=== PATIENT | female | born 1970 | race Caucasian/White ===

== ENCOUNTER → 2020-06-11 11:22 | Outpatient (CLI) | payer OTHER, SELFPAY ==
--- NOTE | ~2020-06-11 | DEXA_ITS ---
Bone Density Report Name: Delores Melo Age: 49 Sex: Female Ethnicity: White Date of : 1970 Indication: postmenopausal; screening for osteoporosis; inflammatory bowel disease; seizure disorder; hysterectomy; secondary osteoporosis; Referring Provider: DEYANIRA, JAYLIN Velazco Study: Bone densitometry was performed. Exam Date: June 11, 2020 Accession number: [id number] Bone Density: Region BMD T-score Z-score Classification AP Spine (L1-L4) 0.734 -2.8 -2.1 Osteoporosis Femoral Neck (Left) 0.579 -2.4 -1.7 Osteopenia Total Hip (Left) 0.639 -2.5 -2.0 Osteoporosis Femoral Neck (Right) 0.565 -2.6 -1.8 Osteoporosis Total Hip (Right) 0.664 -2.3 -1.8 Osteopenia Total Hip Mean 0.652 -2.4 -1.9 Osteopenia World Health Organization criteria for BMD impression classify patients as: Normal (T-score at or above -1.0), Osteopenia (T-score between -1.0 and -2.5), or Osteoporosis (T-score at or below -2.5). 10-year Fracture Risk: FRAX not reported because: Some T-score for Spine Total or Hip Total or Femoral Neck at or below -2.5 Clinical Information Provided by Patient: Has secondary osteoporosis Has the following medical conditions: Any Seizure Disorders, Inflammatory bowel diseases, Hysterectomy Patient maximum height was 62 Menopause Age: 47 Does not regularly consume dairy products Drinks caffeinated beverages Onset of menses at age 11 Number of children 0 Missed period for more than 6 months in a row Impression: The patient has osteoporosis, based on the Total Spine T-score. Discussion: HIGH RISK OF FRACTURE. BONE DENSITY IS UNDESIRABLY LOW AT ONE OR MORE SKELETAL SITES, CONSISTENT WITH OSTEOPOROSIS. ALSO, BONE DENSITY IS LOWER THAN EXPECTED FOR AGE AND SEX AT ONE OR MORE SKELETAL SITES; RECOMMEND A DILIGENT SEARCH FOR SECONDARY CAUSES OF BONE LOSS. This patient's lowest T-score meets the World Health Organization's (WHO) criteria for osteoporosis at one or more sites (T-score -2.5 or below). In untreated patients, the risk of osteoporotic fracture increases approximately two-fold for each 1.0 SD decrease in T-score. Low bone density is not the only risk factor for fracture; also consider factors such as patient's age, frailty or poor health, risk of falling, risk of injury, previous osteoporotic fracture, family history of osteoporosis, cigarette smoking, low body weight, etc. Not everyone with low bone mineral density has osteoporosis; osteomalacia and other metabolic bone disorders should also be considered. Patients who have osteoporosis should be evaluated for specific diseases and conditions (secondary causes) that may cause or contribute to bone loss. The [place] [employer] (AACE) and National Osteoporosis Foundation (NOF) recommend pharmacologic intervention for all postmenopausal women w
== END ==
PROVIDERS: PCP Family Medicine; Visit Provider Family Medicine
DX: M81.0 Age-related osteoporosis without current pathological fracture (principal); M85.852 Other specified disorders of bone density and structure, left thigh; M85.851 Other specified disorders of bone density and structure, right thigh
CPT/HCPCS: 77080

== ENCOUNTER 2020-10-08 02:35 | Outpatient (CLI) | payer OTHER, SELFPAY ==
[2020-10-08 19:47] LABS: SARS-CoV-2 RNA PCR Negative
== END 2020-10-08 02:36 | disposition home or self-care (01) ==
LOC: ANHCOVIDDT 02:35
PROVIDERS: PCP Family Medicine; Visit Provider Internal Medicine Gastroenterology
DX: Z01.812 Encounter for preprocedural laboratory examination (principal); Z20.828 Contact with and (suspected) exposure to other viral communicable diseases
CPT/HCPCS: 87635; C9803; U0003

== ENCOUNTER 2020-10-11 04:38 | Day surgery (SDC) | payer OTHER, SELFPAY ==
[2020-10-07 12:17] VITALS: BMI 20.1
[2020-10-11 06:41] VITALS: BP 108/75; PULSE 67; RESP 16; TEMP 36.4; O2SAT 97
[2020-10-11] MEDS: LACTATED RINGERS 1,000 ML 150 ML IV CONT (06:57)
--- NOTE | 2020-10-11 07:33 | WPDANESEPPF ---
Anes - Initial Pre Proc Eval Procedure: Operation Date: 10/11/20 08:00 Proposed Procedures p Screening Colonoscopy - Rai Taveras MD Date/Time: 10/11/20 07:33 Surgeon: Rai Taveras MD Pre Op Diagnosis: Neoplasm Screening Patient Data Age: 49 Gender: F Height: 5 ft 2 in Weight: 48.1 kg Last Vital Signs Temp 36.4 C L 10/11/20 06:41 Pulse 67 10/11/20 06:41 Resp 16 10/11/20 06:41 BP 108/75 10/11/20 06:41 Pulse Ox 97 10/11/20 06:41 Allergies Allergy/AdvReac Type Severity Reaction Status Date / Time No Known Allergies Allergy Unknown Verified 10/11/20 06:40 Home Medications Medication Instructions Recorded Confirmed Type alendronate 70 mg PO WEEKLY 10/07/20 10/11/20 History dexlansoprazole [Dexilant] 60 mg PO DAILY 10/07/20 10/11/20 History fluticasone propionate 1 spray INTRANASAL DAILY 10/07/20 10/11/20 History lamotrigine 100 mg PO BID 10/07/20 10/07/20 History Patient hx anesthesia problems: post op nausea/vomiting Family hx anesthesia problems: none PMFSH Past Medical History Medical History Seizure disorder Social History Social History Living arrangements: alone Spiritual care concerns: No Anes - Eval Final PreProcedure Day of Procedure 10/11/20 07:33 Patient weight: normal Heart: regular rate and rhythm Lungs: clear to auscultation Airway: Mallampati scale class 1 Neurological: alert and oriented Last oral intake: >/= 8 hours ASA classification: II Emergent: no Anesthetic plan: proceed Anesthesia type and monitoring: general GIVS and standard monitoring Informed Consent: The patient's anesthetic plan and its attendant risks and benefits were discussed with the patient/family/POA. Questions were solicited and answers provided to the satisfaction of the patient/family/POA.
--- NOTE | 2020-10-11 08:35 | WPDGICN ---
Assessment and Plan Assessment and plan (1) Encounter for screening colonoscopy: Code(s): Z12.11 - Encounter for screening for malignant neoplasm of colon Status: Acute Assessment and Plan: Patient presents for screening colonoscopy because of her age. She appears to be at average risk for colon polyps. Further recommendations will be given after colonoscopy. GI Consult Note Consult date/time: 10/11/20 08:35 HPI: Delores Melo is a 49 year old female Seen in evaluation at the request of Dr. Kathryn Marquez, and Dr Samantha Oakley. patient presents for neoplasia screening colonoscopy. Patient's current weight appetite bowel movements are normal. She denies abdominal pain. Her family history is noncontributory. She has had no bleeding. Review of Systems Review of Systems: All systems reviewed & are unremarkable except as noted in HPI and below PMFSH Past Medical History Medical History Seizure disorder Social History Social History Living arrangements: alone Spiritual care concerns: No Meds Home Medications and Allergies Home Medications Medication Instructions Recorded Confirmed Type alendronate 70 mg PO WEEKLY 10/07/20 10/11/20 History dexlansoprazole [Dexilant] 60 mg PO DAILY 10/07/20 10/11/20 History fluticasone propionate 1 spray INTRANASAL DAILY 10/07/20 10/11/20 History lamotrigine 100 mg PO BID 10/07/20 10/07/20 History Allergies Allergy/AdvReac Type Severity Reaction Status Date / Time No Known Allergies Allergy Unknown Verified 10/11/20 06:40 Vital Signs Vital Signs - 24 hr 10/11/20 06:41 Temperature 97.5 F L Pulse Rate 67 Respiratory Rate 16 Blood Pressure 108/75 Pulse Oximetry 97 Exam Narrative: Exam Narrative: Physical exam reveals patient to be alert. Vital signs stable. HEENT exam unremarkable. Lungs are clear to auscultation and percussion. Heart is without murmur or extra sounds. Abdominal exam bowel sounds are present soft nontender with no organomegaly. Digital external rectal exam normal.
[2020-10-11 08:39] VITALS: BP 93/60; PULSE 65; RESP 12; O2SAT 100
[2020-10-11 08:49] VITALS: BP 105/69; PULSE 57; RESP 15; O2SAT 100
[2020-10-11 08:59] VITALS: BP 117/62; PULSE 46; RESP 15; O2SAT 100
== END 2020-10-11 09:18 | disposition home or self-care (01) ==
PROVIDERS: PCP Family Medicine; Visit Provider Internal Medicine Gastroenterology
PROC: 0DJD8ZZ Inspection of Lower Intestinal Tract, Via Natural or Artificial Opening Endoscopic (ICD-10-PCS; CPT 45378; principal; 2020-10-11 08:00)
DX: Z12.11 Encounter for screening for malignant neoplasm of colon (principal); K64.8 Other hemorrhoids; G40.909 Epilepsy, unspecified, not intractable, without status epilepticus
CPT/HCPCS: 45378; J2704; J7120

== ENCOUNTER → 2020-12-11 16:58 | Outpatient (CLI) | payer OTHER, SELFPAY ==
--- NOTE | ~2020-12-11 | MR_ITS ---
EXAMINATION: MR knee RT wo con DATE: 12/11/2020 17:57 INDICATION: Right knee instability. TECHNIQUE: Magnetic resonance imaging (MRI) of the right knee was performed without intravenous contr ast. Sequences included axial PD-weighted FS FSE, coronal PD-weighted FSE and PD-weighted FS FSE, sag ittal PD-weighted FSE, and sagittal T2-weighted FS FSE. COMPARISON: None. FINDINGS: Medial compartment: Medial meniscus is intact. There is cartilage surface irregularity of femoral condyle involving the l ateral articular surface. There is cartilage surface regularity of tibial condyle involving the later al articular surface. Lateral compartment: Lateral meniscus is normal. Femoral cartilage is normal. There is cartilage surface irregularity of t ibial condyle posteriorly. Patellofemoral compartment: Patellar cartilage is normal. Trochlear cartilage is normal. Ligaments and tendons: There is a complete tear of anterior cruciate ligament. Posterior cruciate ligament is intact. There are sprains of medial collateral ligament and fibular collateral ligament characterized by thickening and increased signal intensity proximally and adjacent edema. There is mild patellar tendinopathy. T here is edema of soleus and popliteus muscles, consistent with mild strains. Fluid: There is a large hemarthrosis. There is widespread edema of the fat about the knee. Osseous/other: There is bone marrow edema of medial tibial condyle posteriorly, consistent with contusion. There is an impaction fracture of lateral tibial condyle posteriorly with 3 mm cortical depression, low signal fracture lines, and bone marrow edema. IMPRESSION: 1. Complete tear of anterior cruciate ligament. 2. Impaction fracture of lateral tibial condyle posteriorly. Contusion of medial tibial condyle poste riorly. 3. Mild chondrosis of medial and lateral compartments. 4. Large hemarthrosis. 5. Sprains of medial collateral ligament and fibular collateral ligament (grade 2). 6. Mild strains of soleus and popliteus muscles (grade 1). Reviewed, dictated and finalized at location B. ER SODA IMPRESSION: 1. Complete tear of anterior cruciate ligament. 2. Impaction fracture of lateral tibial condyle posteriorly. Contusion of media l tibial condyle posteriorly. 3. Mild chondrosis of medial and lateral compartments. 4. Large hemarthrosis. 5. Sprains of medial collateral ligament and fibular collateral ligament (grade 2). 6. Mild strains of soleus and popliteus muscles (grade 1).
== END ==
PROVIDERS: PCP Family Medicine
DX: S83.411A Sprain of medial collateral ligament of right knee, initial encounter (principal); S83.421A Sprain of lateral collateral ligament of right knee, initial encounter; S83.511A Sprain of anterior cruciate ligament of right knee, initial encounter; X58.XXXA Exposure to other specified factors, initial encounter
CPT/HCPCS: 73721

== ENCOUNTER → 2021-11-14 09:10 | Outpatient (CLI) | payer OTHER, SELFPAY ==
--- NOTE | ~2021-11-14 | MR_ITS ---
EXAMINATION: MR knee RT wo con DATE: 11/14/2021 10:20 INDICATION: Internal derangement of the right knee TECHNIQUE: Magnetic resonance imaging (MRI) of the right knee was performed without intravenous contr ast. Sequences included coronal PD-weighted FSE, coronal PD-weighted FS FSE, sagittal T2-weighted FS E, sagittal PD-weighted FS FSE and axial PD weighted fat saturated FSE. COMPARISON: 12/11/2020. FINDINGS: Medial compartment: Medial meniscus is normal. Focal chondral swelling and mild fissuring along the lateral margin of the anterior weightbearing medial femoral condyle. There is chondral surface regularity and mild subarti cular edema along the juxtaposed lateral side of the medial tibial plateau along the articular surfac e of the intercondylar eminence. No interval progression since the prior study. Lateral compartment: Lateral meniscus is normal. Small region of partial-thickness chondral fissuring with mild subarticul ar edema along the posterior margin of the lateral tibial plateau with there is subtle old healed imp action fractures with minimal residual depression of the cortex along the rim of the lateral tibial p lateau. This fracture appeared acute at the time of the prior MRI. Patellofemoral compartment: Small region of new deep chondral fissuring along the inferior aspect of the medial patellar facet wi thout degenerative subchondral changes. Trochlear cartilage is normal. Ligaments and tendons: Interval anterior cruciate ligament reconstruction with intact appearing graft. The posterior cruciat e ligament is normal. Mild thickening without increased signal at the proximal medial collateral liga ment consistent with mild residual scarring related to the previously noted sprain. The previously se en sprain of the proximal fibular collateral ligament has healed and now appears normal. The extensor mechanism is normal. The semitendinosus tendon is no longer visualized suggesting this was utilized autograft for the anterior cruciate ligament reconstruction. The visualized medial and lateral hamstr ing tendons as well as the iliotibial band are otherwise normal. Fluid: Physiologic amount of fluid in the joint space. No loose osteochondral bodies identified. Osseous/other: Bone alignment is normal. No acute fracture or blastic marrow replacing process. IMPRESSION: 1. New likely chondral injury with deep fissuring along the inferior aspect of the medial patellar fa cet. 2. Intact appearing anterior cruciate ligament reconstruction likely with semitendinosus autograft elias rvest. 3. Unchanged small regions of moderate grade chondromalacia in the medial and lateral compartments as detailed above. Reviewed, dictated and finalized at location H. ING ASSISTANT IMPRESSION: 1. New likely chondral injury with deep fissuring along the inferior aspect of the medial patellar facet. 2. Intact appearing anterior cruciate ligament reconstruction likely with semit endinosus autograft harvest. 3. Unchanged small regions of moderate grade chondromalacia in the medial and l ateral compartments as detailed above.
== END ==
DX: S83.511D Sprain of anterior cruciate ligament of right knee, subsequent encounter (principal); X58.XXXD Exposure to other specified factors, subsequent encounter
CPT/HCPCS: 73721

== ENCOUNTER → 2022-09-30 13:20 | Outpatient (CLI) | payer OTHER, SELFPAY ==
--- NOTE | ~2022-09-30 | DEXA_ITS ---
Bone Density Report Name: HARMONY MORRIS Age: 51 Sex: Female Ethnicity: White Date of : 1970 Indication: postmenopausal osteoporosis; monitoring treatment; inflammatory bowel disease; seizure disorder; hysterectomy; Referring Provider: DEYANIRA, JAYLIN Velazco Study: Bone densitometry was performed. Exam Date: September 30, 2022 Accession number: [id number] Bone Density: Region BMD T-score Z-score Classification AP Spine (L1-L4) 0.762 -2.6 -1.7 Osteoporosis Femoral Neck (Left) 0.598 -2.3 -1.3 Osteopenia Total Hip (Left) 0.684 -2.1 -1.5 Osteopenia Femoral Neck (Right) 0.557 -2.6 -1.7 Osteoporosis Total Hip (Right) 0.648 -2.4 -1.8 Osteopenia Total Hip Mean 0.666 -2.3 -1.7 Osteopenia World Health Organization criteria for BMD impression classify patients as: Normal (T-score at or above -1.0), Osteopenia (T-score between -1.0 and -2.5), or Osteoporosis (T-score at or below -2.5). 10-year Fracture Risk: FRAX not reported because: Some T-score for Spine Total or Hip Total or Femoral Neck at or below -2.5 Treated for osteoporosis Previous Exams: Region Exam Age BMD T-score BMD Change BMD Change Date g/cm2 vs Baseline vs Previous AP Spine(L1-L4) 09/30/2022 51 0.762 -2.6 0.028* 0.028* 06/11/2020 49 0.734 -2.8 Total Hip(Left) 09/30/2022 51 0.684 -2.1 0.045* 0.045* 06/11/2020 49 0.639 -2.5 Total Hip(Right) 09/30/2022 51 0.648 -2.4 -0.017 -0.017 06/11/2020 49 0.664 -2.3 *Denotes significance at 95% confidence level, LSC for AP Spine = 0.022 g/cm2, LSC for Total Hip = 0.027 g/cm2 Clinical Information Provided by Patient: Is being treated for osteoporosis Has used the following medications: Fosamax (i.e. alendronate), Vitamin D Has the following medical conditions: Any Seizure Disorders, Inflammatory bowel diseases, Hysterectomy Patient maximum height was 62.4 Menopause Age: 47 Drinks caffeinated beverages Onset of menses at age 11 Number of children 0 Missed period for more than 6 months in a row Impression: The patient has osteoporosis, based on the Total Spine T-score. No significant bone loss was observed. Discussion: PATIENT UNDER TREATMENT WITH NO SIGNIFICANT BMD LOSS SINCE LAST EXAM. In an untreated patient, BMD typically declines with age. A lack of decline or gain is usually a sign that treatment is efficacious and fracture risk is reduced. It is important to ask patients whether th
== END ==
PROVIDERS: PCP Family Medicine; Visit Provider Family Medicine
DX: M81.0 Age-related osteoporosis without current pathological fracture (principal); M85.852 Other specified disorders of bone density and structure, left thigh; M85.851 Other specified disorders of bone density and structure, right thigh
CPT/HCPCS: 77080

== ENCOUNTER 2022-10-04 10:46 | Observation (INO) | payer OTHER, SELFPAY ==
--- NOTE | ~2022-10-04 | US_ITS ---
EXAMINATION: US pelvic complete DATE: 10/05/2022 09:15 INDICATION: Left adnexal lesion. TECHNIQUE: Multiple transabdominal and transvaginal sonographic images of the pelvis were obtained. COMPARISON: CT abdomen and pelvis 10/04/2022 FINDINGS: TRANSABDOMINAL ULTRASOUND: The uterus measures 6.2 x 3.6 x 3.8 cm. There is no free fluid in the pelvis. TRANSVAGINAL ULTRASOUND: The endometrial complex measures 3 mm in thickness. There is a 1.8 cm intramural fibroid. The right o vary is not visualized. In the left adnexa, there is a 7.5 x 4.7 x 3.5 cm cystic mass with internal l ow-level echoes and borderline thickened septations with vascular flow in the septations. IMPRESSION: 1. 7.5 cm cystic mass in the left adnexa with borderline thickened septations with vascular flow. Thi s finding is suspicious for neoplasm. Surgical evaluation is recommended. Reviewed, dictated and finalized at location A. UM GUIDE IMPRESSION: 1. 7.5 cm cystic mass in the left adnexa with borderline thickened septations w ith vascular flow. This finding is suspicious for neoplasm. Surgical evaluation is recommended.
--- NOTE | ~2022-10-04 | MR_ITS ---
EXAMINATION: MR MRCP wo/w con/w 3D wo ind DATE: 10/05/2022 08:04 INDICATION: Abdominal pain. Abnormal liver function tests. TECHNIQUE: Magnetic resonance imaging (MRI) of the abdomen was performed without and with 10 mL Multi Griselda intravenous contrast. Sequences included coronal T2-weighted FS FSE, coronal T2-weighted FSE, a xial T1-weighted LAVA, coronal FS FIESTA, axial dual-echo T1-weighted SPGR, coronal lava-FLEX, sagitt al T2-weighted FSE, axial T2-weighted FSE, and axial DWI. Thick-slab T2-weighted FSE images were obta ined for magnetic resonance cholangiopancreatography (MRCP). Maximum intensity projection 3-D reconst ructions of the volumetric data were created by the technologist. Postcontrast sequences included cor onal LAVA-flex and time course of axial T1-weighted LAVA. COMPARISON: CT abdomen and pelvis 10/04/2022 FINDINGS: ABDOMEN MRI: The liver is normal. There are changes of cholecystectomy. There are small peripheral in farcts in the spleen. The pancreas, adrenal glands, and kidneys are normal. There are no dilated loop s of bowel. There are no pathologically enlarged lymph nodes. There is no free intraperitoneal fluid. ABDOMEN MRCP: Pneumobilia is noted. The common duct is normal in caliber. IMPRESSION: 1. Pneumobilia, new from 10/04/2022, which may be from recent stone passage. Resolved common duct dil atation. 2. 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 Reviewed, dictated and finalized at location A. RAL CLEANER IMPRESSION: 1. Pneumobilia, new from 10/04/2022, which may be from recent stone passage. Re solved common duct dilatation. 2. 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
--- NOTE | ~2022-10-04 | CT_ITS ---
EXAMINATION: CT abdomen pelvis w con INDICATION: Epigastric pain TECHNIQUE: Computed tomographic images of the abdomen and pelvis were obtained after the administrati on of 100 cc of Omnipaque 350 intravenous contrast. The dose-length product (DLP) was 171.16 mGy-cm. Automated exposure control and iterative reconstruction technique were employed. COMPARISON: None available FINDINGS: There is a 4 mm nodule of the left lower lobe. The heart size is normal. There are changes of cholecystectomy. There is a questionable filling defect of the distal common bile duct at the ampu lla. There is intrahepatic and extrahepatic biliary dilatation. The common bile duct measures up to 1 .3 cm. Cysts of the spleen measure up to 4 mm. The liver, pancreas, and adrenal glands are normal. Th e kidneys are unremarkable. No pathologically enlarged abdominal or pelvic lymph nodes are identified . There is no free intraperitoneal gas or evidence of bowel obstruction. There is a 7.7 x 6.1 cm comp dominique cystic lesion of the left adnexa with internal septations. There is mild lumbar spondylosis. IMPRESSION: 1. Intrahepatic and extrahepatic biliary dilatation with possible filling defect of the distal common bile duct at the ampulla. Given elevated liver function tests, GI consultation and further evaluatio n with endoscopy are recommended. 2. Complex cystic lesion of the left adnexa. Follow-up pelvic ultrasound is recommended. 3. 4 mm nodule of the left lower lobe. Reviewed, dictated and finalized at location A. RUCTIONAL DESIGN CONSULTANT IMPRESSION: 1. Intrahepatic and extrahepatic biliary dilatation with possible filling defec t of the distal common bile duct at the ampulla. Given elevated liver function tests, GI consultation and further evaluation with endoscopy are recommended. 2. Complex cystic lesion of the left adnexa. Follow-up pelvic ultrasound is rec ommended. 3. 4 mm nodule of the left lower lobe.
[2022-10-04 11:30] VITALS: BP 147/91; PULSE 67; RESP 16; TEMP 36.7; O2SAT 98
[2022-10-04 11:46] LABS: Basophils Percent Auto 0.6 % (0.2-1.2); Eosinophils Absolute Auto 0.1 K/mm3 (0-0.3); Hematocrit 37.1 % (37.0-47.0); Hemoglobin 12.8 g/dL (12.0-15.0); Immature Granulocyte Absolute 0.02 K/mm3 (0.00-0.031); Immature Granulocyte Percent A 0.4 % (0-0.5); Lymphocytes Absolute Auto 0.57 K/mm3 (0.9-3.2); Lymphocytes Percent Auto 11.6 % (18.3-44.2); Mean Corpuscular HGB Conc 34.5 g/dl (32-36); Mean Corpuscular Hemoglobin 32.3 pg (26-34); Mean Corpuscular Volume 93.7 fl (80-100); Mean Platelet Volume 8.6 fl (7.4-10.4); Monocytes Absolute Auto 0.2 K/mm3 (0.1-0.6); Monocytes Percent Auto 4.9 % (2.6-8.5); Neutrophils Absolute Auto 3.9 K/mm3 (1.3-6.7); Neutrophils Percent Auto 80.5 % (45.5-73.1); Platelet Count Result 230 k/mm3 (150-375); Red Blood Count 3.96 M/mm3 (4.2-5.4); Red Cell Distribution Width 12.2 % (11.5-14.5); White Blood Count 4.9 K/mm3 (4.5-10.0)
[2022-10-04 11:59] LABS: Albumin Level 4.3 g/dL (3.5-5.1); Alkaline Phosphatase 189 U/L (38-126); Anion Gap 9 mmol/L (8-16); Bilirubin,Total 1.2 mg/dL (0.2-1.3); Blood Urea Nitrogen 12 mg/dL (7-17); Calcium 8.9 mg/dL (8.4-10.2); Carbon Dioxide 25 mmol/L (22-30); Chloride 102 mmol/L (98-107); Estimated CRCL calculation 54 ml/min; Estimated Glomerular Filt Rate > 60; Glucose 129 mg/dL (65-110); Lipase 212 U/L (23-300); Potassium 3.3 mmol/L (3.4-5.0); Sodium 136 mmol/L (137-145)
[2022-10-04 12:06] LABS: Alanine Aminotransferase 883 U/L (6-35); Aspartate Amino Transferase 811 U/L (14-36)
[2022-10-04 12:24] LABS: Appearance Urine Clear (Clear); Bilirubin Urine Negative (Negative); Blood Urine Trace-lysed (Negative); Color Urine Yellow (Yellow); Glucose Urine UA Negative (Negative); Ketones Urine Negative (Negative); Leukocyte Esterase Ur Negative LEU/UL (Negative); Nitrate Urine Negative (Negative); Protein Urine Negative (Negative); Specific Grav Ur <= 1.005 (1.001-1.035); Urobilinogen Urine 0.2 mg/dL (<2.0)
[2022-10-04 12:32] LABS: Add Urine Microscopic? YES
--- NOTE | 2022-10-04 12:44 | PC.NURSE ---
levi arias, sports activities foul judge ct abd pelvis w/con
[2022-10-04] MEDS: SODIUM CHLORIDE 0.9% IV 1,000 ML 999 ML IV CONT (13:50)
[2022-10-04] MEDS: BELLADONNA ALK/PHENOB ELIX 10 ML, MAG HYDROX/ALUMINUM HYD/SIMETH 30 ML, LIDOCAINE HCL 2... PO (13:50)
[2022-10-04] MEDS: PANTOPRAZOLE SODIUM IV 40 MG VIAL IV PUSH ×2 (13:50→22:06)
--- NOTE | 2022-10-04 13:57 | ED.ABDPAIN ---
HPI - Abdominal Pain General Chief Complaint: Abdominal Pain Stated Complaint: epigastric, upper abd pain, fevers Time Seen by Provider: 10/04/22 12:31 History of Present Illness HPI narrative: 51-year-old female history of GERD presents to the emergency room for evaluation of epigastric pain that began on Wednesday night. Patient states that she normally takes Dexilant for this but has not been helping. Patient reports taking multiple [id number] medications in an attempt to relieve her symptoms, none of them have been successful. Patient denies nausea or vomiting, diarrhea or constipation. Patient states pain is now radiating around both sides of her torso into her back. It is worse when laying flat. Describes pain as a throbbing sensation. Related Data Home Medications Medication Instructions Recorded Confirmed alendronate 70 mg tablet 70 mg PO WEEKLY 10/07/20 10/11/20 dexlansoprazole 60 mg 60 mg PO DAILY 10/07/20 10/11/20 capsule,biphase delayed release (Dexilant) fluticasone propionate 50 1 spray intranasal DAILY 10/07/20 10/11/20 mcg/actuation nasal spray,suspension lamotrigine 100 mg tablet 100 mg PO BID 10/07/20 10/07/20 Allergies Allergy/AdvReac Type Severity Reaction Status Date / Time No Known Allergies Allergy Unknown Verified 10/11/20 06:40 Review of Systems Review of Systems: CONSTITUTIONAL: Denies fever, chills, or sweats. EYES: Denies visual changes, redness, or discharge. ENT: Denies rhinorrhea, congestion, sore throat, or otalgia. CARDIOVASCULAR: Denies chest pain, palpitations, or edema. RESPIRATORY: Denies cough or dyspnea. GASTROINTESTINAL: Reports epigastric pain GENITOURINARY: Denies dysuria or hematuria. SKIN: Denies rash or itching. MUSCULOSKELETAL: Denies back pain, joint pain, or myalgia. NEUROLOGIC: Denies headache, numbness, dizziness, or weakness. PSYCHIATRIC: Denies anxiety or depression. PMFSH Past Medical History Medical History Seizure disorder Social History Social History Spiritual care concerns: No Exam Narrative: GENERAL: Well-appearing, well-nourished, no physical limitations, and in no acute distress. HEAD: Normocephalic, atraumatic. EYES: Conjunctivae normal, PERRLA and EOMI. CHEST: Clear to auscultation. No respiratory distress. No wheezes rales or rhonchi. HEART: Regular rate and rhythm. No murmur heard. Normal peripheral pulses. ABDOMEN: Soft, epigastric tenderness, nondistended, normal active bowel sounds. BACK: No CVA tenderness EXTREMITIES: Normal range of motion. No edema. No clubbing or cyanosis SKIN: Warm, dry, no rash. No noted wounds NEURO: No focal deficits. Alert and oriented x3. MAEW. CN's II-XI intact bilaterally, normal gait PSYCH: Cooperative. Normal mood and affect. Course Vital Signs Vital signs: Vital Signs Temperature 36.7 C 10/04/22 11:30 Pulse Rate 67 10/04/22 11:30 Respiratory Rate 16 10/04/22 11:30 Blood Pressure 147/91 H 10/04/22 11:30 Pulse Oximetry 98 10/04/22 11:30 Oxygen Delivery Room Air 10/04/22 11:30 Temperature 36.7 C 10/04/22 11:30 Pulse Rate 67 10/04/22 11:30 Respiratory Rate 16 10/04/22 11:30 Blood Pressure 147/91 H 10/04/22 11:30 Pulse Oximetry 98 10/04/22 11:30 Oxygen Delivery Room Air 10/04/22 11:30 MDM - Abdominal Pain Lab Data Result diagrams: 10/04/22 11:40 10/04/22 11:40 Labs: Lab Results 10/04/22 10/04/22 10/04/22 Range/Units 11:40 11:40 12:15 WBC 4.9 (4.5-10.0) K/mm3 RBC 3.96 L (4.2-5.4) M/mm3 Hgb 12.8 (12.0-15.0) g/dL Hct 37.1 (37.0-47.0) % MCV 93.7 (80-100) fl MCH 32.3 (26-34) pg MCHC 34.5 (32-36) g/dl RDW 12.2 (11.5-14.5) % Plt Count 230 (150-375) k/mm3 MPV 8.6 (7.4-10.4) fl Immature Gran % (Auto) 0.4 (0-0.5) % Neut % (Auto) 80.5 H
--- NOTE | 2022-10-04 15:30 | PM.IMHP ---
H&P: HPI History of Present Illness Date/Time: 10/04/22 15:30 Chief Complaint: Abdominal pain. Narrative: This is a very pleasant 51-year-old female with history of seizures, GERD, breast cancer, and gallstones status post cholecystectomy over 10 years ago who presented to the emergency department from home for evaluation of epigastric pain. evening she had issues with heartburn which is not necessarily unusual for. She took her usual cocktail of Tums and Gaviscon which seemed to help although she continues to have similar symptoms intermittently. Wednesday evening she had chicken soup for dinner and her symptoms were much worse after eating and she has not been eating much since that time. On Wednesday she developed chills and a low-grade temperature to 100.8? Fahrenheit. She has had worsening pain since that time and she describes a burning discomfort in epigastrium with in addition to an aching discomfort also in the right upper quadrant. The pain does not radiate and she denies nausea, vomiting, and diarrhea. No sick contacts. She was afebrile on arrival to the emergency department her vital signs have been stable. Labs done in the emergency department were significant for a sodium of 136, potassium 3.3, AST 11, ALT 83, alkaline phosphatase 189, total bilirubin 1.2, lipase 212. CT of the abdomen and pelvis showed intrahepatic and extrahepatic biliary dilatation with possible filling defect of the distal common bile duct at the ampulla and she is being admitted in this setting. She was given a GI cocktail with perhaps a little bit of benefit though hydromorphone 0.5 milligram seemed to help the most. Review of Systems Review of Systems: Twelve systems were reviewed. No cold or flu symptoms. No sick contacts. No exposure to or concerns for hepatitis. No diarrhea. No jaundice or pruritus. Except as documented, all other systems were reviewed and are negative. [facility] Past Medical History Medical History (Updated 10/04/22 @ 20:50 by Michelle Nguyen PA-C) Cancer of right breast (2014) Status post lumpectomy and chemo radiation. Gastroesophageal reflux disease Melanoma of back Seizure disorder Surgical History Surgical History (Updated 10/04/22 @ 20:44 by Michelle Nguyen PA-C) History of bilateral salpingo-oophorectomy History of cholecystectomy History of lumpectomy of right breast (2014) History of melanoma excision History of ovarian cystectomy History of repair of anterior cruciate ligament of right knee History of repair of left rotator cuff Family History Family History (Updated 10/04/22 @ 20:45 by Michelle Nguyen PA-C) Other Hypertension Social History Social History (Updated 10/04/22 @ 20:45 by Michelle Nguyen PA-C) Social History: Surrogate medical decision maker: Dewayne Phipps, significant other. Code status: Full code. Smoking status: Never smoker Alcohol intake: never Substance use: never Lack of Transportation: No Lack of Food: Never True Current Housing: I Have Housing Concerned About Future Housing: No Difficulty Paying Gas/Electric Bills: No Difficulty Paying for Meds: No Currently Unemployed: No Education: Master's Degree or Higher Difficulty w/ Childcare or Family Care: No Spiritual care concerns: No Meds Home Medications and Allergies Home Medications Medication Instructions Recorded Confirmed Type alendronate 70 mg tablet 70 mg PO WEEKLY 10/07/20 10/04/22 History dexlansoprazole 60 mg 60 mg PO DAILY 10/07/20 10/04/22 History capsule,biphase delayed release (Dexilant) lamotrigine 100 mg tablet 100 mg PO BID 10/07/20 10/04/22 History oxybutynin chloride 5 mg tablet 2.5 mg PO BID 10/04/22 10/04/22 History Allergies Allergy/AdvReac Type Severity Reaction Status Date / Time No Known Allergies Allergy Unknown Verified 10/11/20 06:40 Vital Signs Vital Signs - 24 hr 10/04/22 11:30 10/04/22 15:45 10/04/22 16:00 Temperat
[2022-10-04 15:44] LABS: Influenza A QL RT-PCR Negative (Negative); Influenza B QL RT-PCR Negative (Negative); RSV RNA, RT-PCR Negative (Negative); SARS-CoV-2 RNA PCR Negative
[2022-10-04 15:45] VITALS: BP 142/86; PULSE 74; RESP 16; TEMP 36.9; O2SAT 98
[2022-10-04 16:00] VITALS: BP 143/82; PULSE 100; RESP 16; TEMP 37; O2SAT 98
--- NOTE | 2022-10-04 16:33 | PC.NURSE ---
This patient, Delores Meol, was admitted to [facility] Surg Room 312-01. Patient/family oriented to hospital policies and general routines including ID bracelet, bed and alarms, visiting hours, pain management, procedures, bathroom and other care routines, personal items, smoking policy, room service/diet, and visiting hours. Information on how to activate the Rapid Response Team has been discussed. Patient/Family are encouraged to report perceived risks to care and to ask questions if they do not understand what they are told or what they should do.
[2022-10-04 16:35] VITALS: BMI 20.2
[2022-10-04] MEDS: SODIUM CHLORIDE 0.9% IV 1,000 ML 125 ML IV CONT (16:51)
[2022-10-04] MEDS: HYDROmorphone HCL INJ (*CRX) 1 MG/ML SYR 0.5 MG IV PUSH (16:57)
[2022-10-04 20:00] VITALS: BP 143/82; PULSE 89; RESP 16; TEMP 37.2; O2SAT 99
[2022-10-04] MEDS: POTASSIUM CHLORIDE 20 MEQ TABLET PO (22:06)
[2022-10-04 23:03] VITALS: TEMP 37.2
[2022-10-04] MEDS: lamoTRIgine 100 MG TABLET PO (23:03)
[2022-10-05] VITALS (8 sets, daily range): BP systolic 105–149; BP diastolic 62–90; PULSE 50–70; RESP 12–17; TEMP 36.2–38.6; O2SAT 98–99
[2022-10-05] MEDS: SODIUM CHLORIDE 0.9% IV 1,000 ML 125 ML IV CONT ×3 (01:40→14:54)
[2022-10-05] MEDS: IBUPROFEN IV 600 MG in SODIUM CHLORIDE 0.9% IV 100 ML 200 MG IVPB (03:53)
[2022-10-05 07:18] LABS: Hematocrit 34.4 % (37.0-47.0); Hemoglobin 11.7 g/dL (12.0-15.0); Mean Corpuscular Hemoglobin 32.5 pg (26-34); Mean Corpuscular Volume 95.6 fl (80-100); Mean Platelet Volume 9.1 fl (7.4-10.4); Platelet Count Result 175 k/mm3 (150-375); Red Cell Distribution Width 12.5 % (11.5-14.5)
[2022-10-05 07:34] LABS: Alanine Aminotransferase 664 U/L (6-35); Albumin Level 3.4 g/dL (3.5-5.1); Alkaline Phosphatase 239 U/L (38-126); Anion Gap 12 mmol/L (8-16); Aspartate Amino Transferase 522 U/L (14-36); Bilirubin,Total 2.2 mg/dL (0.2-1.3); Blood Urea Nitrogen 8 mg/dL (7-17); Calcium 7.1 mg/dL (8.4-10.2); Carbon Dioxide 22 mmol/L (22-30); Chloride 103 mmol/L (98-107); Estimated CRCL calculation 64 ml/min; Estimated Glomerular Filt Rate > 60; Glucose 81 mg/dL (65-110); Lipase 83 U/L (23-300); Magnesium 2.1 mg/dL (1.6-2.3); Potassium 3.5 mmol/L (3.4-5.0); Sodium 137 mmol/L (137-145)
[2022-10-05 08:49] LABS: INR 1.4; Prothrombin Time 16.4 Seconds (11.1-14.7)
[2022-10-05 08:50] LABS: Partial Thromboplastin Time 40.3 SECONDS (22.3-36.8)
[2022-10-05] MEDS: PANTOPRAZOLE SODIUM IV 40 MG VIAL IV PUSH ×2 (09:09→21:52)
[2022-10-05] MEDS: lamoTRIgine 100 MG TABLET PO ×2 (09:10→16:33)
[2022-10-05 09:34] LABS: Hepatitis B Surface Antigen Negative (Negative)
[2022-10-05 09:39] LABS: HAV RESULT Negative (Negative); Hepatitis B Core IgM Result Negative (Negative)
[2022-10-05 09:51] LABS: Hepatitis C Virus Antibody Negative (Negative)
--- NOTE | 2022-10-05 16:48 | WPDGICN ---
Assessment and Plan Assessment and plan (1) Dilation of biliary tract: Code(s): K83.8 - Other specified diseases of biliary tract Status: Acute Assessment and Plan: MRCP reviewed and bile duct is clear with normalization of size (originally dilated in CT scan), most likely passed stone also had elevated liver enzymes and fever will cover with abx advance diet (2) Elevated liver enzymes: Code(s): R74.8 - Abnormal levels of other serum enzymes Status: Acute Assessment and Plan: repeat liver enzymes in am probably already passed stone (3) Abdominal pain: Code(s): R10.9 - Unspecified abdominal pain Status: Acute Assessment and Plan: better will advance diet (4) SIRS (systemic inflammatory response syndrome): Code(s): R65.10 - Systemic inflammatory response syndrome (SIRS) of non-infectious origin without acute organ dysfunction Status: Acute Assessment and Plan: with fever on admission monitor (5) Fever: Code(s): R50.9 - Fever, unspecified Status: Acute (6) History of cholecystectomy: Code(s): Z90.49 - Acquired absence of other specified parts of digestive tract Status: Acute (7) Pneumobilia: Code(s): K83.8 - Other specified diseases of biliary tract Status: Acute GI Consult Note Consult date/time: 10/05/22 16:48 Reason for consult: elevated liver enzymes, dilated bile duct HPI: Deloreskriss Melo is a 51 year old female with history of seizures, GERD, breast cancer, and gallstones status post cholecystectomy over 10 years ago (required lap alfredito and ercp) here with new onset of severe epigastric pain along with low grade fever. She took her usual cocktail of Tums and Gaviscon but did not help. Pain worse after had chicken soup for dinner, also nausea and low-grade temperature to 100.8? Fahrenheit. No sick contacts. Labs showed sodium of 136, potassium 3.3, AST 11, ALT 83, alkaline phosphatase 189, total bilirubin 1.2, lipase 212. CT of the abdomen and pelvis showed intrahepatic and extrahepatic biliary dilatation with possible filling defect of the distal common bile duct at the ampulla, MRCP showed pneumobilia, new from 10/04/2022, which may be from recent stone passage. Resolved common duct dilatation. Overnight had fever 101.5 F but today is feeling better. Review of Systems Review of Systems: CONSTITUTIONAL: + fever and chills. EYES: Denies visual changes, redness, or discharge. ENT: Denies rhinorrhea, congestion, sore throat, or otalgia. CARDIOVASCULAR: Denies chest pain, palpitations, or edema. RESPIRATORY: Denies cough or dyspnea. GASTROINTESTINAL: Reports epigastric pain GENITOURINARY: Denies dysuria or hematuria. SKIN: Denies rash or itching. MUSCULOSKELETAL: Denies back pain, joint pain, or myalgia. NEUROLOGIC: Denies headache, numbness, dizziness, or weakness. PSYCHIATRIC: Denies anxiety or depression. [facility] Past Medical History Medical History (Updated 10/05/22 @ 16:53 by Juliano Ramos MD) Cancer of right breast (2014) Status post lumpectomy and chemo radiation. Elevated liver enzymes Fever Gastroesophageal reflux disease Melanoma of back Pneumobilia Seizure disorder SIRS (systemic inflammatory response syndrome) Surgical History Surgical History (Updated 10/05/22 @ 16:53 by Juliano Ramos MD) History of bilateral salpingo-oophorectomy History of cholecystectomy History of lumpectomy of right breast (2014) History of melanoma excision History of ovarian cystectomy History of repair of anterior cruciate ligament of right knee History of repair of left rotator cuff Family History Family History (Updated 10/04/22 @ 20:45 by Michelle Nguyen PA-C) Other Hypertension Social History Social History (Updated 10/04/22 @ 20:45 by Michelle Nguyen PA-C) Social History: Surrogate medical decision maker: Dewayne Phipps significant other. Code status
--- NOTE | 2022-10-05 17:13 | PM.IMPN ---
Progress Note: A&P Assessment and Plan (1) Abdominal pain: Code(s): R10.9 - Unspecified abdominal pain Status: Acute (2) Transaminitis: Code(s): R74.01 - Elevation of levels of liver transaminase levels Status: Acute (3) Dilation of biliary tract: Code(s): K83.8 - Other specified diseases of biliary tract Status: Acute (4) Adnexal cyst: Code(s): N94.9 - Unspecified condition associated with female genital organs and menstrual cycle Status: Acute (5) Gastroesophageal reflux disease: Code(s): K21.9 - Gastro-esophageal reflux disease without esophagitis Status: Acute (6) Seizure disorder: Code(s): G40.909 - Epilepsy, unspecified, not intractable, without status epilepticus Status: Acute Plan The patient presented to the emergency department today for evaluation of burning discomfort in epigastrium and an aching pain in the right upper quadrant for the last couple of days associated with a low-grade fever. CT of the abdomen and pelvis showed intrahepatic and extrahepatic biliary dilatation with a possible filling defect in the distal common bile duct at the ampulla. Bilirubin is normal and alkaline phosphatase is mildly elevated though her AST and ALT are both in the 800s. MRCP has been ordered for a.m. for further evaluation and she will be NPO after midnight in case an ERCP is indicated. Check hepatitis panel for completeness sake. Analgesics and antiemetics are available as needed. She has been started on IV Protonix. Dr. Ramos has been consulted and his input is greatly appreciated. She does have some electrolyte abnormalities with low sodium and potassium. These will be replaced and monitored. Incidentally a complex cystic lesion of the left adnexa measuring 7.7 x 6.1 centimeters was also noted on the CT scan and a pelvic ultrasound has been ordered for further evaluation. 4 millimeter nodule the left lower lobe noted though she is a lifelong nonsmoker. Lamotrigine will be continued; she has not had a seizure in well over a decade. 10/05/2022 interval history: patient stats pain has improved, MRCP showed patient passed stone, as patient LFT are improving, patient was seen by GI patient has fever started Levaquin and will collect blood culture, patient had pelvic US it showed discussed with the patient, will consult surgery for further recommendation. Subjective Date/time seen: 10/05/22 17:13 HPI-Narrative: This is a very pleasant 51-year-old female with history of seizures, GERD, breast cancer, and gallstones status post cholecystectomy over 10 years ago who presented to the emergency department from home for evaluation of epigastric pain. evening she had issues with heartburn which is not necessarily unusual for. She took her usual cocktail of Tums and Gaviscon which seemed to help although she continues to have similar symptoms intermittently. Wednesday evening she had chicken soup for dinner and her symptoms were much worse after eating and she has not been eating much since that time. On Wednesday she developed chills and a low-grade temperature to 100.8? Fahrenheit. She has had worsening pain since that time and she describes a burning discomfort in epigastrium with in addition to an aching discomfort also in the right upper quadrant. The pain does not radiate and she denies nausea, vomiting, and diarrhea. No sick contacts. She was afebrile on arrival to the emergency department her vital signs have been stable. Labs done in the emergency department were significant for a sodium of 136, potassium 3.3, AST 11, ALT 83, alkaline phosphatase 189, total bilirubin 1.2, lipase 212. CT of the abdomen and pelvis showed intrahepatic and extrahepatic biliary dilatation with possible filling defect of the distal common bile duct at the ampulla and she is being admitted in this setting. She was given a GI cocktail with perhaps a little bit of benefit though hydromorphone 0.5 m
[2022-10-05] MEDS: levoFLOXacin 500 MG/D5W 100 ML 500 MG/100 ML BAG 100 MG IVPB (17:59)
[2022-10-06] VITALS (7 sets, daily range): BP systolic 124–143; BP diastolic 68–79; PULSE 52–63; RESP 14–18; TEMP 36.2–36.8; O2SAT 98–100
[2022-10-06 06:37] LABS: Hematocrit 34.1 % (37.0-47.0); Hemoglobin 11.5 g/dL (12.0-15.0); Mean Corpuscular HGB Conc 33.7 g/dl (32-36); Mean Corpuscular Hemoglobin 32.8 pg (26-34); Mean Corpuscular Volume 97.2 fl (80-100); Mean Platelet Volume 9.2 fl (7.4-10.4); Platelet Count Result 192 k/mm3 (150-375); Red Blood Count 3.51 M/mm3 (4.2-5.4); White Blood Count 4.4 K/mm3 (4.5-10.0)
[2022-10-06 06:46] LABS: Alanine Aminotransferase 495 U/L (6-35); Albumin Level 3.4 g/dL (3.5-5.1); Alkaline Phosphatase 294 U/L (38-126); Anion Gap 12 mmol/L (8-16); Aspartate Amino Transferase 246 U/L (14-36); Bilirubin,Total 1.8 mg/dL (0.2-1.3); Blood Urea Nitrogen 6 mg/dL (7-17); Calcium 7.2 mg/dL (8.4-10.2); Carbon Dioxide 22 mmol/L (22-30); Chloride 107 mmol/L (98-107); Estimated CRCL calculation 74 ml/min; Estimated Glomerular Filt Rate > 60; Glucose 96 mg/dL (65-110); Magnesium 2.3 mg/dL (1.6-2.3); Potassium 3.5 mmol/L (3.4-5.0); Sodium 141 mmol/L (137-145)
[2022-10-06] MEDS: lamoTRIgine 100 MG TABLET PO ×2 (09:13→19:06)
[2022-10-06] MEDS: PANTOPRAZOLE SODIUM IV 40 MG VIAL IV PUSH ×2 (09:13→21:22)
--- NOTE | 2022-10-06 14:46 | WPDGIPROGNO ---
Progress Note: A&P Assessment and Plan (1) Elevated liver enzymes: Code(s): R74.8 - Abnormal levels of other serum enzymes Status: Acute Assessment and Plan: trending down, it seems that had stone/sludge that already passed (reviewed MRCP and showed normalization of previous dilated bile duct, she is post ercp and cholecystectomy ~ 10 years ago) she also has been dealing with intermittent pain in epigastric and reflux sensation, meds at home sometimes don't help, she has not had a recent egd I will set up egd as outpatient (2) Dilation of biliary tract: Code(s): K83.8 - Other specified diseases of biliary tract Status: Acute Assessment and Plan: resolved (3) Transaminitis: Code(s): R74.01 - Elevation of levels of liver transaminase levels Status: Acute Assessment and Plan: trending down (4) Fever: Code(s): R50.9 - Fever, unspecified Status: Acute Assessment and Plan: started on abx (5) Pneumobilia: Code(s): K83.8 - Other specified diseases of biliary tract Status: Acute (6) Adnexal cyst: Code(s): N94.9 - Unspecified condition associated with female genital organs and menstrual cycle Status: Acute Assessment and Plan: new finding, suspicious of tumor- transportation officer evaluation pending Subjective Date/time seen: 10/06/22 14:46 Interval history: overall much better, tolerating diet. Review of Systems Review of Systems: All systems reviewed & are unremarkable except as noted in HPI and below Exam Const: General: comfortable and no acute distress HENMT: Face/Nose/Sinus: Normal nares present Eyes: General: appearance normal, both eyes and all related structures Neck: Neck: no JVD Resp: Auscultation: clear to auscultation bilaterally Cardio: Rate: regular rate Rhythm: regular rhythm GI: Inspection: non-distended GI Palp: Yes Soft to palpation and No Tenderness to palpation present (GI) Auscultation: normal bowel sounds Skin: General skin exam: normal color Neuro: General: gait normal Speech: normal speech Extrem: General: normal to inspection Psych: Mental Status: mental status grossly normal Objective Data Vital Signs Vital Signs: Vital Signs - 24 hr 10/05/22 16:00 10/05/22 20:00 10/06/22 00:00 Temperature 97.2 F L 97.8 F 97.3 F L Pulse Rate 51 L 52 L 54 L Respiratory Rate 14 14 16 Blood Pressure 116/67 149/90 H 129/79 Pulse Oximetry 98 99 99 Oxygen Delivery 10/05/22 20:00 10/06/22 04:00 10/06/22 08:00 Temperature 97.2 F L 98.3 F Pulse Rate 52 L 58 L Respiratory Rate 14 18 Blood Pressure 133/68 127/79 Pulse Oximetry 98 98 Oxygen Delivery Room Air 10/06/22 12:00 Temperature 97.4 F L Pulse Rate 55 L Respiratory Rate 16 Blood Pressure 124/75 Pulse Oximetry 99 Oxygen Delivery Intake/Output Intake/Output: Intake & Output 10/03/22 10/04/22 10/05/22 10/06/22 23:59 23:59 23:59 23:59 Intake Total 1000 3560 686 Output Total 2300 800 Balance 1000 1260 -114 Meds/Results Medications: Active Medications Generic Name Dose Route Start Last Admin Trade Name Freq PRN Reason Stop Dose Admin Acetaminophen 650 mg 10/04/22 20:54 Acetaminophen 325 Mg Tablet PO Q6H PRN Mild Pain (1-3) or Fever Hydrocodone Bitart/Acetaminophen 1 tab 10/04/22 20:54 Hydrocodone/Acetaminophen (*Crx) 5-325 Mg Tablet PO Q6H PRN Pain Rated 4-6 Hydromorphone HCl 0.5 mg 10/04/22 14:42 10/04/22 16:57 Hydromorphone Hcl Inj (*Crx) 1 Mg/Ml Syr IV PUSH 0.5 mg Q4H PRN Administration Pain Rated 7-10 Sodium Chloride 1,000 mls @ 75 mls/hr 10/04/22 14:45 10/05/22 14:54 Normal Saline Iv IV CONT 75 mls/hr .[id number] SOFY Infusion Ibuprofen 600 mg/ Sodium 106 mls @ 200 mls/hr 10/05/22 02:23 10/06/22 08:14 Chloride IVPB Infused Q6H PRN Infusion Pain Rated 4-6 Levofloxacin/Dextrose 500 mg in 100 mls @ 100 mls/hr
--- NOTE | 2022-10-06 16:33 | PM.IMPN ---
Progress Note: A&P Assessment and Plan (1) Abdominal pain: Code(s): R10.9 - Unspecified abdominal pain Status: Acute (2) Transaminitis: Code(s): R74.01 - Elevation of levels of liver transaminase levels Status: Acute (3) Dilation of biliary tract: Code(s): K83.8 - Other specified diseases of biliary tract Status: Acute (4) Adnexal cyst: Code(s): N94.9 - Unspecified condition associated with female genital organs and menstrual cycle Status: Acute (5) Gastroesophageal reflux disease: Code(s): K21.9 - Gastro-esophageal reflux disease without esophagitis Status: Acute (6) Seizure disorder: Code(s): G40.909 - Epilepsy, unspecified, not intractable, without status epilepticus Status: Acute Plan The patient presented to the emergency department today for evaluation of burning discomfort in epigastrium and an aching pain in the right upper quadrant for the last couple of days associated with a low-grade fever. CT of the abdomen and pelvis showed intrahepatic and extrahepatic biliary dilatation with a possible filling defect in the distal common bile duct at the ampulla. Bilirubin is normal and alkaline phosphatase is mildly elevated though her AST and ALT are both in the 800s. MRCP has been ordered for a.m. for further evaluation and she will be NPO after midnight in case an ERCP is indicated. Check hepatitis panel for completeness sake. Analgesics and antiemetics are available as needed. She has been started on IV Protonix. Dr. Ramos has been consulted and his input is greatly appreciated. She does have some electrolyte abnormalities with low sodium and potassium. These will be replaced and monitored. Incidentally a complex cystic lesion of the left adnexa measuring 7.7 x 6.1 centimeters was also noted on the CT scan and a pelvic ultrasound has been ordered for further evaluation. 4 millimeter nodule the left lower lobe noted though she is a lifelong nonsmoker. Lamotrigine will be continued; she has not had a seizure in well over a decade. 10/06/2022 interval history: patient stats pain has improved, MRCP showed patient passed stone, as patient LFT are improving, patient was seen by GI patient has fever started Levaquin and collected blood culture, no growth so far, patient remains afebrile for 24 hours, will continue to monitor, patient had pelvic US it showed ?7.5 cm cystic mass in the left adnexa with borderline thickened septations with vascular flow. This finding is suspicious for neoplasm. discussed with the patient, consulted clothing room supervisor for further recommendation. Subjective Date/time seen: 10/06/22 16:33 10/06/2022 interval history: patient stats pain has improved, MRCP showed patient passed stone, as patient LFT are improving, patient was seen by GI patient has fever started Levaquin and collected blood culture, no growth so far, patient remains afebrile for 24 hours, will continue to monitor, patient had pelvic US it showed ?7.5 cm cystic mass in the left adnexa with borderline thickened septations with vascular flow. This finding is suspicious for neoplasm. discussed with the patient, consulted clothing room supervisor for further recommendation. Objective Data Vital Signs Vital Signs: Vital Signs - 24 hr 10/05/22 20:00 10/06/22 00:00 10/05/22 20:00 Temperature 97.8 F 97.3 F L Pulse Rate 52 L 54 L Respiratory Rate 14 16 Blood Pressure 149/90 H 129/79 Pulse Oximetry 99 99 Oxygen Delivery Room Air 10/06/22 04:00 10/06/22 08:00 10/06/22 12:00 Temperature 97.2 F L 98.3 F 97.4 F L Pulse Rate 52 L 58 L 55 L Respiratory Rate 14 18 16 Blood Pressure 133/68 127/79 124/75 Pulse Oximetry 98 98 99 Oxygen Delivery 10/06/22 16:00 Temperature 98.1 F Pulse Rate 63 Respiratory Rate 16 Blood Pressure 138/69 Pulse Oximetry 99 Oxygen Delivery Intake/Output Intake/Output: Intake & Output 10/03/22 10/04/22 10/05/22 10/06/22 23:59 23:5
[2022-10-06] MEDS: SODIUM CHLORIDE 0.9% IV 1,000 ML 75 ML IV CONT (19:06)
[2022-10-06] MEDS: levoFLOXacin 500 MG/D5W 100 ML 500 MG/100 ML BAG 100 MG IVPB (19:10)
[2022-10-06] MEDS: ACETAMINOPHEN 325 MG TABLET 650 MG PO (21:26)
[2022-10-07 02:52] VITALS: BP 113/66; PULSE 55; RESP 18; TEMP 36.1; O2SAT 99
[2022-10-07 06:08] LABS: Hematocrit 31.6 % (37.0-47.0); Hemoglobin 10.6 g/dL (12.0-15.0); Mean Corpuscular HGB Conc 33.5 g/dl (32-36); Mean Corpuscular Hemoglobin 32.8 pg (26-34); Mean Corpuscular Volume 97.8 fl (80-100); Mean Platelet Volume 9.3 fl (7.4-10.4); Platelet Count Result 183 k/mm3 (150-375); Red Blood Count 3.23 M/mm3 (4.2-5.4); White Blood Count 4.5 K/mm3 (4.5-10.0)
[2022-10-07 06:21] LABS: Alanine Aminotransferase 378 U/L (6-35); Albumin Level 3.1 g/dL (3.5-5.1); Alkaline Phosphatase 321 U/L (38-126); Anion Gap 11 mmol/L (8-16); Aspartate Amino Transferase 194 U/L (14-36); Blood Urea Nitrogen 8 mg/dL (7-17); Calcium 7.5 mg/dL (8.4-10.2); Carbon Dioxide 23 mmol/L (22-30); Chloride 108 mmol/L (98-107); Estimated CRCL calculation 74 ml/min; Estimated Glomerular Filt Rate > 60; Glucose 107 mg/dL (65-110); Magnesium 2.1 mg/dL (1.6-2.3); Potassium 3.8 mmol/L (3.4-5.0); Sodium 142 mmol/L (137-145)
--- NOTE | 2022-10-07 06:50 | PM.GYNPNOP ---
ARGON TESTER - A/P Assessment and plan (1) Mass of left ovary: Code(s): N83.8 - Other noninflammatory disorders of ovary, fallopian tube and broad ligament Status: Acute Assessment and Plan: Borderline features of ovarian mass with no lymphadenopathy or ascites. Still likely benign process. Due to her inflammation of peritoneal cavity by liver, tumor markers would be invalid at this time. Plan to follow up as outpatient with tumor markers and follow up u/s after acute RUQ pathology is resolved. Discussed with patient will likely need surgically removed. Time Spent With Patient Time: Total time spent is greater than 50% in coordination of care (as documented) at patient's floor/unit and/or counseling patient: Time with patient: less than 15 minutes ARGON TESTER- PN:Subj Post-Op Subjective Date/time seen: 10/07/22 06:50 Interval history: Patient admitted through ER with RUQ pain. Incidental finding of 7 cm complex adnexal mass. Patient without lower pelvic complaints. Exam Const: General: comfortable and no acute distress GI: GI Palp: Yes abdominal tenderness (upper mild; LLQ nt) ARGON TESTER - PN: Obj Data Vital Signs Vital Signs: Vital Signs - 24 hr 10/06/22 08:00 10/06/22 12:00 10/06/22 16:00 Temperature 98.3 F 97.4 F L 98.1 F Pulse Rate 58 L 55 L 63 Respiratory Rate 18 16 16 Blood Pressure 127/79 124/75 138/69 Pulse Oximetry 98 99 99 Oxygen Delivery 10/06/22 19:25 10/06/22 20:00 10/07/22 02:52 Temperature 97.2 F L 97 F L Pulse Rate 52 L 52 L 55 L Respiratory Rate 18 18 18 Blood Pressure 143/74 H 113/66 Pulse Oximetry 100 100 99 Oxygen Delivery Room Air Intake/Output Intake/Output: Intake & Output 10/04/22 10/05/22 10/06/22 10/07/22 23:59 23:59 23:59 23:59 Intake Total 1000 3560 2106 340 Output Total 2300 1800 Balance 1000 1260 306 340 Meds/Results Medications: Active Medications Generic Name Dose Route Start Last Admin Trade Name Freq PRN Reason Stop Dose Admin Acetaminophen 650 mg 10/04/22 20:54 10/06/22 21:26 Acetaminophen 325 Mg Tablet PO 650 mg Q6H PRN Administration Mild Pain (1-3) or Fever Hydrocodone Bitart/Acetaminophen 1 tab 10/04/22 20:54 Hydrocodone/Acetaminophen (*Crx) 5-325 Mg Tablet PO Q6H PRN Pain Rated 4-6 Hydromorphone HCl 0.5 mg 10/04/22 14:42 10/04/22 16:57 Hydromorphone Hcl Inj (*Crx) 1 Mg/Ml Syr IV PUSH 0.5 mg Q4H PRN Administration Pain Rated 7-10 Sodium Chloride 1,000 mls @ 75 mls/hr 10/04/22 14:45 10/06/22 19:06 Normal Saline Iv IV CONT 75 mls/hr .[id number] SOFY Administration Ibuprofen 600 mg/ Sodium 106 mls @ 200 mls/hr 10/05/22 02:23 10/06/22 08:14 Chloride IVPB Infused Q6H PRN Infusion Pain Rated 4-6 Levofloxacin/Dextrose 500 mg in 100 mls @ 100 mls/hr 10/05/22 17:00 10/06/22 20:10 Levaquin 500 Mg/D5w 100 Ml IVPB Infused Q24H SOFY Infusion Lamotrigine 100 mg 10/04/22 22:25 10/06/22 19:06 Lamotrigine 100 Mg Tablet PO 100 mg BID SOFY Administration Ondansetron HCl 4 mg 10/04/22 14:42 Ondansetron Inj 4 Mg/2 Ml Vial IV PUSH Q4H PRN Nausea Pantoprazole Sodium 40 mg 10/04/22 21:00 10/06/22 21:22 Pantoprazole Sodium Iv 40 Mg Vial IV PUSH 40 mg Q12HR SOFY Administration Radiology Results: ITS Impressions Abdomen/Pelvis CT 10/04/22 13:35 IMPRESSION: 1. Intrahepatic and extrahepatic biliary dilatation with possible filling defect of the distal common bile duct at the ampulla. Given elevated liver function tests, GI consultation and further evaluation with endoscopy are recommended. 2. Complex cystic lesion of the left adnexa. Follow-up pelvic ultrasound is recommended. 3. 4 mm nodule of the left lower lobe. MRCP 10/05/22 08:48 IMPRESSION: 1. Pneumobilia, new from 10/04/2022, which may be from recent stone passage. Resolved common duct dilatation. 2. 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 Pelvis Ultrasound 09/22
[2022-10-07] MEDS: lamoTRIgine 100 MG TABLET PO (08:57)
[2022-10-07] MEDS: PANTOPRAZOLE SODIUM IV 40 MG VIAL IV PUSH (08:57)
--- NOTE | 2022-10-07 11:19 | PM.DS ---
DS: Admitting Diagnosis Discharge Date October 07, 2022 Admitting Diagnosis abdominal pain DS: Discharge Diagnosis Discharge Diagnosis (1) Abdominal pain: Code(s): R10.9 - Unspecified abdominal pain Status: Acute (2) Transaminitis: Code(s): R74.01 - Elevation of levels of liver transaminase levels Status: Acute (3) Dilation of biliary tract: Code(s): K83.8 - Other specified diseases of biliary tract Status: Acute (4) Adnexal cyst: Code(s): N94.9 - Unspecified condition associated with female genital organs and menstrual cycle Status: Acute (5) Gastroesophageal reflux disease: Code(s): K21.9 - Gastro-esophageal reflux disease without esophagitis Status: Acute (6) Seizure disorder: Code(s): G40.909 - Epilepsy, unspecified, not intractable, without status epilepticus Status: Acute DS: Summary Hospital Course Hospital Course: patient is a 51-year-old female who came in with abdominal pain. Upon evaluation she did have elevation of liver enzymes. GI was consulted and patient likely had a stone that was passed in the common bile duct. Patient will need follow-up with GI for outpatient EGD. Liver enzymes are trending down. Otherwise patient did have a ovarian cyst or mass that was noted and OBGYN was consulted and patient will need to be seen by OBGYN as an outpatient for possible removal of this. This is not emergent and does not need to be done during this hospitalization. Time Spent with Patient Time attestation: Total time spent providing and/or coordinating discharge services: Exam Narrative: Patient is comfortable, NAD HEENT: eyes are clear and none icteric LUNGS: normal respiratory effort ABD: not distended Lower extremities: no edema SKIN: nonjaundiced Neuro: grossly intact. DS: Data Data Completed and Pending Labs on day of discharge: Labs from last 24 hours 10/07/22 10/07/22 05:29 05:29 WBC 4.5 RBC 3.23 L Hgb 10.6 L Hct 31.6 L MCV 97.8 MCH 32.8 MCHC 33.5 RDW 13.0 Plt Count 183 MPV 9.3 Sodium 142 Potassium 3.8 Chloride 108 H Carbon Dioxide 23 Anion Gap 11 BUN 8 Creatinine 0.60 L Estim Creat Clear Calc 74 Estimated GFR > 60 Glucose 107 Calcium 7.5 L Magnesium 2.1 Total Bilirubin 1.0 AST 194 H ALT 378 H Alkaline Phosphatase 321 H Total Protein 6.0 L Albumin 3.1 L Preliminary micro results at discharge 10/05/22 17:12 Blood Culture - Preliminary Blood 10/05/22 17:06 Blood Culture - Preliminary Blood Discharge Plan Discharge Attending physician on discharge: Greg Solitario Consulting providers: Juliano Ramos ; Samantha Oakley Discharging Clinician: Greg Solitario Patient Disposition: Home, Self-Care Activity: as tolerated Diet: as tolerated Patient Instructions: Antibiotic Form, Pain Management in Older Adults (DC) Stand Alone Forms: General Discharge Information Follow-up/Referrals: Jimmy,Kathryn Velazco MD [Primary Care Provider] - Samantha Oakley MD [Physician] - Juliano Ramos MD [Physician] - Discharge Medications: Continued oxybutynin chloride 5 mg tablet 2.5 mg PO BID lamotrigine 100 mg tablet 100 mg PO BID dexlansoprazole [Dexilant] 60 mg capsule,biphase delayed releas 60 mg PO DAILY alendronate 70 mg tablet 70 mg PO WEEKLY Rx Instructions: Mondays Date of admission: 10/04/22 14:42 Primary Care Provider: LorenaKathryn Admitting Provider: Maryjane Pereyra Attending physician on admission: Maryjane Pereyra Condition: Stable
== END 2022-10-07 12:07 | disposition home or self-care (01) ==
LOC: ANHED 14:41 → ANH3MEDSUR 16:14
PROVIDERS: Emergency Medicine; Physician Assistant; Admitting Provider Family Medicine; Emergency Provider Nurse Practitioner Family; PCP Family Medicine; Visit Provider Chiropractor
DX: K83.8 Other specified diseases of biliary tract (principal); R74.8 Abnormal levels of other serum enzymes; R65.10 Systemic inflammatory response syndrome (SIRS) of non-infectious origin without acute organ dysfunction; R10.13 Epigastric pain; R50.9 Fever, unspecified; R74.01 Elevation of levels of liver transaminase levels; N94.9 Unspecified condition associated with female genital organs and menstrual cycle; K21.9 Gastro-esophageal reflux disease without esophagitis; G40.909 Epilepsy, unspecified, not intractable, without status epilepticus; Z85.3 Personal history of malignant neoplasm of breast; Z90.49 Acquired absence of other specified parts of digestive tract; Z92.21 Personal history of antineoplastic chemotherapy; Z92.3 Personal history of irradiation; Z85.820 Personal history of malignant melanoma of skin; Z20.822 Contact with and (suspected) exposure to COVID-19
CPT/HCPCS: 36415; 74177; 74183; 76376; 76856; 80053; 80074; 81001; 83690; 83735; 85025; 85027; 85610; 85730; 87040; 87077; 87637; 96361; 96365; 96366; 96367; 96374; 96375; 96376; 99285; A9270; A9577; C9113; G0378; J1170; J1741; J1956; J7030; Q9967

== ENCOUNTER 2023-01-15 01:19 | Day surgery (SDC) | payer OTHER, SELFPAY ==
[2023-01-01 14:54] VITALS: BMI 19.3
[2023-01-15 08:10] VITALS: BP 122/71; PULSE 64; RESP 16; TEMP 36.3; O2SAT 100
[2023-01-15] MEDS: LACTATED RINGERS 1,000 ML 150 ML IV CONT (08:20)
--- NOTE | 2023-01-15 08:34 | WPDANESEPPF ---
Anes - Initial Pre Proc Eval Procedure: Operation Date: 01/15/23 09:00 Proposed Procedures p Esophagogastroduodenoscopy - Juliano Ramos MD Date/Time: 01/15/23 08:34 Surgeon: Juliano Ramos MD Pre Op Diagnosis: dysphagia, GERD Patient Data Age: 52 Gender: F Height: 1.57 m Weight: 48 kg Last Vital Signs Temp 97.3 F L 01/15/23 08:10 Pulse 64 01/15/23 08:10 Resp 16 01/15/23 08:10 BP 122/71 01/15/23 08:10 Pulse Ox 100 01/15/23 08:10 O2 Del Method Room Air 01/15/23 08:10 Allergies Allergy/AdvReac Type Severity Reaction Status Date / Time No Known Allergies Allergy Unknown Verified 01/15/23 08:09 Home Medications Medication Instructions Recorded Confirmed Type alendronate 70 mg tablet (Fosamax) 70 mg PO WEEKLY 10/07/20 01/01/23 History dexlansoprazole 60 mg 60 mg PO DAILY 10/07/20 01/01/23 History capsule,biphase delayed release (Dexilant) lamotrigine 100 mg tablet 100 mg PO BID 10/07/20 01/15/23 History oxybutynin chloride 5 mg tablet 2.5 mg PO DAILY 10/04/22 01/01/23 History Adults Multivitamin 1 tablet BYMOUTH DAILY 01/01/23 01/01/23 History Patient hx anesthesia problems: none Family hx anesthesia problems: none Results Review: All pre-operative results and documents have been reviewed as part of the pre-operative evaluation. [facility] Past Medical History Medical History (Updated 11/05/22 @ 15:28 by Juliano Ramos MD) Cancer of right breast (2014) Status post lumpectomy and chemo radiation. Dysphagia Elevated liver enzymes Fever Gastroesophageal reflux disease Melanoma of back Pneumobilia Seizure disorder SIRS (systemic inflammatory response syndrome) Surgical History Surgical History History of bilateral salpingo-oophorectomy This is in error only had salpingectomies patient has both ovaries History of cholecystectomy History of lumpectomy of right breast (2014) History of melanoma excision History of ovarian cystectomy History of repair of anterior cruciate ligament of right knee History of repair of left rotator cuff Family History Family History Other Hypertension Social History Social History Social History: Surrogate medical decision maker: Dewayne Phipps, significant other. Code status: Full code. Smoking status: Never smoker Alcohol intake: never Alcohol use details: 1 DRINK PER MOMNTH Substance use: never Substance use type: does not use Lack of Transportation: No Lack of Food: Never True Current Housing: I Have Housing Concerned About Future Housing: No Difficulty Paying Gas/Electric Bills: No Difficulty Paying for Meds: No Currently Unemployed: No Education: Master's Degree or Higher Difficulty w/ Childcare or Family Care: No Living arrangements: other Spiritual care concerns: No Anes - Eval Final PreProcedure Day of Procedure 01/15/23 08:34 Patient weight: normal Heart: regular rate and rhythm Lungs: clear to auscultation Airway: Mallampati scale class II Neurological: alert and oriented Last oral intake: >/= 8 hours ASA classification: III Emergent: no Anesthetic plan: proceed Anesthesia type and monitoring: general GIVS and standard monitoring Results Review: All pre-operative results and documents have been reviewed as part of the pre-operative evaluation. Informed Consent: The patient's anesthetic plan and its attendant risks and benefits were discussed with the patient/family/POA. Questions were solicited and answers provided to the satisfaction of the patient/family/POA.
--- NOTE | 2023-01-15 08:46 | PM.HPGS ---
History of Present Illness History of Present Illness Consent: Risks, benefits, and alternatives have been discussed and questions answered. Patient agrees to proceed with procedure. Chief complaint: dysphagia, GERD Narrative: Delores Melo is a 52 year old female with gerd on dexilant and also lately with dysphagia and feeling food getting stuck, last egd years ago Review of Systems Constitutional: Constitutional: Denies headache(s) and Denies weakness Eyes: Eyes: Denies blurry vision ENT: Reports Normal hearing present, Denies headache(s) and Denies neck pain Cardiovascular: Cardiovascular: Denies chest pain and Denies dyspnea Respiratory: Respiratory: Denies dyspnea Gastrointestinal: Gastrointestinal: Reports no additional gastrointestinal complaints Genitourinary: Genitourinary: Denies dysuria Musculoskeletal: Musculoskeletal: Denies neck pain Integumentary/Breasts: Skin/Breast: Denies dry skin Neurologic: Reports Normal hearing present, Denies headache(s) and Denies weakness Psychiatric: Psychiatric: Denies anxiety Endocrine: Endocrine: Denies change in body appearance Hematologic/Lymphatic: Hematologic/Lymphatic: Denies easy bleeding Allergic/Immunologic: Allergic/Immunologic: Denies urticaria PMFSH Past Medical History Medical History (Updated 11/05/22 @ 15:28 by Juliano Ramos MD) Cancer of right breast (2014) Status post lumpectomy and chemo radiation. Dysphagia Elevated liver enzymes Fever Gastroesophageal reflux disease Melanoma of back Pneumobilia Seizure disorder SIRS (systemic inflammatory response syndrome) Surgical History Surgical History History of bilateral salpingo-oophorectomy This is in error only had salpingectomies patient has both ovaries History of cholecystectomy History of lumpectomy of right breast (2014) History of melanoma excision History of ovarian cystectomy History of repair of anterior cruciate ligament of right knee History of repair of left rotator cuff Family History Family History Other Hypertension Social History Social History Social History: Surrogate medical decision maker: Dewayne Phipps, significant other. Code status: Full code. Smoking status: Never smoker Alcohol intake: never Alcohol use details: 1 DRINK PER MOMNTH Substance use: never Substance use type: does not use Lack of Transportation: No Lack of Food: Never True Current Housing: I Have Housing Concerned About Future Housing: No Difficulty Paying Gas/Electric Bills: No Difficulty Paying for Meds: No Currently Unemployed: No Education: Master's Degree or Higher Difficulty w/ Childcare or Family Care: No Living arrangements: other Spiritual care concerns: No Meds Home Medications and Allergies Home Medications Medication Instructions Recorded Confirmed Type alendronate 70 mg tablet (Fosamax) 70 mg PO WEEKLY 10/07/20 01/01/23 History dexlansoprazole 60 mg 60 mg PO DAILY 10/07/20 01/01/23 History capsule,biphase delayed release (Dexilant) lamotrigine 100 mg tablet 100 mg PO BID 10/07/20 01/15/23 History oxybutynin chloride 5 mg tablet 2.5 mg PO DAILY 10/04/22 01/01/23 History Adults Multivitamin 1 tablet BYMOUTH DAILY 01/01/23 01/01/23 History Allergies Allergy/AdvReac Type Severity Reaction Status Date / Time No Known Allergies Allergy Unknown Verified 01/15/23 08:09 Vital Signs Vital Signs - 24 hr 01/15/23 08:10 Temperature 97.3 F L Pulse Rate 64 Respiratory Rate 16 Blood Pressure 122/71 Pulse Oximetry 100 Oxygen Delivery Room Air Exam Const: General: comfortable and no acute distress HENMT: Face/Nose/Sinus: Normal nares present Eyes: General: appearance normal, both eyes and all related structures Neck:
[2023-01-15] MEDS: BENZOCAINE (*SP) 60 ML SPRAY CAN (HURRICAINE) 1 SPRAY MUCOUS MEM (08:50)
[2023-01-15 09:04] VITALS: BP 106/65; PULSE 65; RESP 15; O2SAT 99
[2023-01-15 09:14] VITALS: BP 107/67; PULSE 69; RESP 22; O2SAT 98
[2023-01-15 09:24] VITALS: BP 115/71; PULSE 65; RESP 15; O2SAT 97
== END 2023-01-15 09:38 | disposition home or self-care (01) ==
PROVIDERS: PCP Family Medicine; Visit Provider Internal Medicine Gastroenterology
PROC: 0DJ08ZZ Inspection of Upper Intestinal Tract, Via Natural or Artificial Opening Endoscopic (ICD-10-PCS; CPT 43235; principal; 2023-01-15 09:00)
DX: R13.10 Dysphagia, unspecified (principal); K21.9 Gastro-esophageal reflux disease without esophagitis; K31.84 Gastroparesis; G40.909 Epilepsy, unspecified, not intractable, without status epilepticus; Z85.3 Personal history of malignant neoplasm of breast; Z92.21 Personal history of antineoplastic chemotherapy; Z92.3 Personal history of irradiation
CPT/HCPCS: 43239; 43248; 88305; J2704; J7120

== ENCOUNTER 2023-01-27 07:35 | Outpatient (CLI) | payer OTHER, SELFPAY ==
--- NOTE | ~2023-01-27 | NM_ITS ---
EXAM: NM gastric emptying study DATE: 01/27/2023 12:27 INDICATION: Bloating. TECHNIQUE: A gastric emptying study was performed using the methodology of Court VELASCO, et al. J Nucl Med 2007; 48:568-572. The patient was given a meal consisting of 2 scrambled eggs labeled with 1.049 mCi Tc-99m sulfur colloid, 2 slices of toast, two packages of jam, and approximately 120 mL of water . Simultaneous anterior and posterior 1-min images of the abdomen were obtained with the patient supi ne at multiple time points over a total period of 4 hours. The geometric mean of anterior and posteri or views was determined, and the percentage retention was calculated for each time point. COMPARISON: [place] 10/05/2022 FINDINGS: Gastric retention of the radiotracer-labeled meal was 60%, 39%, and 8% at the 1-hour, 2-ho ur, and 4-hour time points, respectively. With this technique, apparent rapid gastric emptying is sug gested by <30% gastric retention at 1 hour. Delayed gastric emptying is defined by gastric retention of >90% at 1 hour, >60% retention at 2 hours, or >10% retention at 4 hours. IMPRESSION: 1. Normal gastric emptying. Reviewed, dictated and finalized at location [facility] IMPRESSION: 1. Normal gastric emptying.
== END 2023-01-27 07:36 | disposition home or self-care (01) ==
LOC: ANHIMG 07:39
PROVIDERS: PCP Family Medicine; Visit Provider Internal Medicine Gastroenterology
DX: R10.9 Unspecified abdominal pain (principal); K21.9 Gastro-esophageal reflux disease without esophagitis; R14.0 Abdominal distension (gaseous)
CPT/HCPCS: 78264; A9541